=== PATIENT | male | born 1995 | race Caucasian/White ===

== ENCOUNTER 2024-02-20 16:24 | Observation (INO) | payer MEDICAID, SELFPAY ==
[2024-02-20 16:25] VITALS: BP 140/105; PULSE 100; RESP 20; TEMP 36.6; O2SAT 99; BMI 20.9
--- NOTE | 2024-02-20 16:56 | EX.ED.SAOD ---
HPI History of Present Illness Chief Complaint: Substance Abuse Detail of Chief Complaint: Fentanyl abuse. Informant: patient Onset/Context/Timing Onset: - (3 years) Timing: Continuous Current Severity: Moderate Maximum Severity: Moderate Narrative Narrative: 28-year-old male history of narcotic abuse. Currently his drug abuse is fentanyl. Primarily through snorting or smoking. Denies IV drug abuse. Requesting detox. Here with his parents. Of note has had a prior colectomy due to bowel perforation. He has a colostomy. Prior similar symptoms: Yes Recent Illness/Hospitalization: No PFSH PFSH Allergy/AdvReac Type Severity Reaction Status Date / Time No Known Allergies Allergy Verified 02/20/24 16:25 Surgical History H/O total colectomy Social History Smoking Status: Current every day smoker tobacco type: cigarettes ROS ROS ED ROS Narrative Withdrawal symptoms. Constitutional Constitutional ED: Denies chills or fever(s) Eyes Eyes: Denies blurry vision ENT ENT ED: Denies ear pain Cardiovascular Cardiovascular: Denies chest pain Respiratory/Chest Respiratory/Chest: Denies cough Gastrointestinal Gastrointestinal: Denies abdominal pain Genitourinary Genitourinary ED: Denies dysuria Musculoskeletal Musculoskeletal: Denies arthralgias Integumentary Denies abscess Neurologic Neurologic: Denies headache(s) Psychiatric Psychiatric: Reports anxiety Endocrine Endocrinology: Denies cold intolerance Hematologic/Lymphatic Hematologic/Lymphatic: Denies easy bleeding Allergic/Immunologic Allergic/Immunologic ED: Denies mouth swelling EXAM Physical Exam Narrative Exam Narrative: 28-year-old male vital signs are stable afebrile. Sitting upright in bed. Both parents are present in the room. H EENT exam unremarkable. Neck nontender. Lungs clear to auscultation bilaterally. Heart regular rhythm rate about 100 no murmur. Chest wall ribs nontender. Abdomen soft nondistended normal bowel sounds without peritoneal signs. Right lower quadrant colostomy bag. He is got a prior midline exploratory laparotomy surgery. With a chronic wound. Moving all 4 extremities. Nontender no edema. No track barrientos on his arms. He is awake and alert. Answer questions following commands. Back nontender. Const Vital Signs: 02/20/24 16:25 Temperature 98 F Temperature Source Temporal Pulse Rate 100 Respiratory Rate 20 H Blood Pressure 140/105 H Blood Pressure Mean 116 Pulse Ox 99 Oxygen Delivery Method Room Air Positive well nourished and well developed; Negative for obese, cachectic, contractures or unkempt General Appearance ED: well developed and NAD; Negative for unkempt, cachectic or contractures Nutritional Appearance: Negative for cachectic or obese HEENT Reports moist mucous membranes Negative for atraumatic, trauma or tenderness Eyes PERRL and EOMs intact bilaterally General Eye ED: Negative for pale conjunctiva Neck no lymphadenopathy, supple and no JVD Lymph Lymphatic: no lymphadenopathy noted Chest Wall inspection of chest normal and palpation of chest normal Resp normal respiratory effort and clear to auscultation bilaterally Cardio regular rate, regular rhythm, S1 normal heart sound, S2 normal heart sound and no murmurs Rate: Negative for bradycardia or tachycardic Rhythm: Negative for abnormal rhythm GI soft to palpation, non-tender, non-distended and no masses Inspection: Negative for abdominal distention Palpation: Negative for tender Back/Spine no CVA tenderness Extremity General Extremety ED: Negative for edema or tenderness General Extremity: Negative for edema Neuro oriented x3 and CN's II-XII intact bilaterally Sensorium / Orientation: alert, oriented to person, oriented to place and oriented to time; Negative for confused, lethargic or stuporous Speech: speech normal Motor Exam: strength 5/5 throughout Psych mental status grossly normal and thought process normal Appearance: Negative for unkempt Attitude: No belligerent and No agitated Mood & Affect: Negative for depressed or tearful Skin Lesions: no lesions Rashes: no rashes MDM MDM MDM Narrative Medical decision making narrative: 28-year-old male history of narcotic abuse requesting detox reportedly no prior history of detox. Last use was last night. Exam benign.Hospitalist on page for detox admission. History & Record Review Discussion w/independent historian: Patient Additional record(s) reviewed:: No prior records Discharge Plan Triage Chief Complaint: Substance Abuse ED Provider: Jose Enrique Mata Dx/Rx/DC Orders Primary Care Provider: Zabrina Baires,Out of Referrals: Zabrina Baires,Out of [Primary Care Provider] - Print Language: Mauritanian
--- NOTE | 2024-02-20 17:04 | HP.PCM.HOS_ITS ---
HPI - General General Date of Admission: 02/20/24 Date of Service: 02/20/24 Chief Complaint: Acute Opiate Withdrawal HPI Narrative The patient is a 28 y/o M w/ PMHx: Polysubstance abuse primarily with currently fentanyl 2 to 3 g daily smoked/snorted with last usage reportedly day prior to current presentation with history of severe associated constipation resulting in bowel perforation with exploratory laparotomy/partial colectomy with ostomy with reversal which failed with 3 creation of colostomy again, Tobacco use who presents to the [facility] ED on 02/20/24 w/ noted acute opiate withdrawal onset starting on day of presentation following last dose as noted the day prior with patient reported abdominal cramping, generalized body aches and pains, fatigue, restless leg noting interested in attaining clean status. Workup in the ED included T98, heart rate 100, BP 140/105, respiratory rate 20, 99% on room air, CBC with WC 10.7, hemoglobin 13.8, platelet 512 with left shift, CMP pending upon evaluation, UDS and ethyl alcohol level pending upon evaluation. [facility] Medical History Tobacco use Fentanyl use disorder, severe Polysubstance abuse Allergy/AdvReac Type Severity Reaction Status Date / Time No Known Allergies Allergy Verified 02/20/24 16:25 other (Patient denies any marked maternal or paternal family history including heart disease, diabetes, cancer, substance abuse.) Surgical History H/O exploratory laparotomy History of creation of ostomy H/O total colectomy Social History (Updated 02/20/24 @ 17:[address] Bertha Cotto MD) household members: family Smoking Status: Current every day smoker tobacco type: cigarettes Smoking packs per day: 2 Smoking cigarettes per day: 40.0 alcohol intake: never substance use type: other details: Fentanyl, approximately 2 to 3 g daily, snorted or smoked. ROS ROS Narrative Admission Review of Systems: CONSTITUTIONAL: No weight loss, fever, chills, + weakness or fatigue. HEENT: Eyes: No visual loss, blurred vision, double vision or yellow sclerae. Ears, Nose, Throat: No hearing loss, sneezing, congestion, runny nose or sore throat. SKIN: No rash or itching, lesions, wounds. CARDIOVASCULAR: No chest pain, chest pressure or chest discomfort, palpitations, edema, orthopnea, syncopal events. RESPIRATORY: No shortness of breath, cough or sputum, wheezing, hemoptysis. GASTROINTESTINAL: + Anorexia, nausea without emesis, abdominal discomfort/cramping, decreased output from ostomy. No melena, BRBPR. GENITOURINARY: No dysuria, frequency, urgency or retention. NEUROLOGICAL: No headache, dizziness, syncope, paralysis, ataxia, numbness or tingling in the extremities, focal weakness, change in bowel or bladder control, seizure. MUSCULOSKELETAL: + muscle, back pain, joint pain or stiffness. HEMATOLOGIC: No anemia, bleeding or bruising. LYMPHATICS: No enlarged nodes. No history of splenectomy. PSYCHIATRIC: No history of depression or anxiety. ENDOCRINOLOGIC: + reports of sweating, cold or heat intolerance. No polyuria or polydipsia. ALLERGIES: No history of asthma, hives, eczema or rhinitis. Vital Signs Vital Signs Vital Signs: 02/20/24 16:25 Temperature 98 F Temperature Source Temporal Pulse Rate 100 Respiratory Rate 20 H Blood Pressure 140/105 H Blood Pressure Mean 116 Pulse Ox 99 Oxygen Delivery Method Room Air Weight Weight: 138 lb 3.677 oz Body Mass Index (BMI) 20.9 Physical Exam Narrative Physical Examination: General: Awakens to stimuli, alert when awake but will fall back asleep, oriented to self, place, year, month recent events, cooperative, seated upright in ED bed, very fatigued. Skin: Normal color, normal turgor, no icterus, no cyanosis except for occasional stage ecchymoses, abrasion, several tattoos. HEENT: AT/NC, EOMI, PERRLA, dry MM, no carotid bruits or JVD noted. Lungs: Diminished, greater bases, mildly increased respiratory rate but no distress no rales, ronchi or wheezing. Heart: Mildly tachycardic with regular rhythm; no gallop, rub audible. Abdomen: Soft, mild generalized discomfort with palpation, ostomy in place, hyperactive bowel sounds, no obvious distention, no obvious HSM. Extremities: No cyanosis, clubbing, or edema. Neurological: Awakens to stimuli, alert when awake but will fall back asleep, oriented to self, place, year, month recent events, cooperative, seated upright in ED bed, very fatigued, cognitive function suspect decreased from baseline given acute presentation, pupils equally reactive to light and accommodation, cranial nerves gross normal, moving all 4 extremities, no focal deficits, strength moderately globally decreased secondary to acute presentation Psychiatric: Affect appears flat, fatigued, no acute evidence of depressive or anxiety feelings but despite denying history suspect likely part of substance abuse component. Results Lab / Micro Data 02/20/24 17:14 02/20/24 17:14 Assessment & Plan Assessment/Plan (1) Admitted to substance misuse detoxification center: PLAN: Plan The patient is a 28 y/o M w/ PMHx: Polysubstance abuse primarily with currently fentanyl 2 to 3 g daily smoked/snorted with last usage reportedly day prior to current presentation with history of severe associated constipation resulting in bowel perforation with exploratory laparotomy/partial colectomy with ostomy with reversal which failed with 3 creation of colostomy again, Tobacco use who presents to the [facility] ED on 02/20/24 w/ noted acute opiate withdrawal. #1. Acute Opiate Withdrawal: Will admit to [facility], routine labs with not marked appearing CBC with pending CMP/alcohol/UDS upon evaluation, will initiate and continue on protocol with tapering course of Subutex, as needed tylenol, ibuprofen, bowel regimen, gabapentin, Bentyl, Vistaril, methocarbamol, clonidine, PRN nightly trazodone for insomnia, IV fluids, IV antiemetics. Once patient clinically improved and completion of taper nearing will plan consultation with case management for transition to next level of rehabilitation care. #2. Polysubstance Abuse: Patient denies any IV drug abuse but given significant substance abuse history discussed and will obtain HIV, hepatitis, syphilis to be cautious. #3. History previous severe bowel perforation: Status post exploratory laparotomy with partial colectomy with ostomy with reversal trial unfortunately which failed and dehisced requiring additional surgery and recreation of ostomy which is still in place, continue routine ostomy care, monitor output. #4. Tobacco Abuse: Encouraged cessation, inpatient consultation per RT, NR if desired. #5. Elevated BP without evidence of diagnosis: Given presentation with acute opiate withdrawal likely related, continue to monitor and add regimen if appropriate, as needed IV hydralazine interim #6. DVT prophylaxis: Low risk for type of admission. Charges/Coding Visit Charges Inpatient E&M: 77881 Init Hosp L2
[2024-02-20 17:15] VITALS: BP 140/105; PULSE 100; RESP 20; TEMP 36.6; O2SAT 99
[2024-02-20 17:19] LABS: Absolute Lymphocyte Count 0.92 X10^3/uL (0.83-4.51); Absolute Neutrophil Count 8.6 X10^3/uL (2.0-7.7); Basophil# 0.05 X10^3/uL; Basophil% 0.5 % (0-1); Eosinophil# 0.04 X10^3/uL; Eosinophils% 0.4 % (0-5); Hematocrit 43.7 % (40-54); Hemoglobin 13.8 g/dL (13.0-16.5); Lymphocyte # 0.92 X10^3/ul (0.83-4.51); Lymphocyte % 8.6 % (19-41); Mean Corp Hgb Conc 31.6 g/dL (32-36); Mean Corpuscular Hgb 27.3 pg (27.0-32.0); Mean Corpuscular Volume 86.4 fL (80-94); Mean Platelet Vol. 8.7 fl (6.2-12.0); Monocyte# 1.13 X10^3/uL; Monocyte% 10.5 % (0-10); NRBC Flagged by Analyzer 0 % (0-5); Neutrophil # 8.55 X10^3/uL (2.7-7.7); Neutrophil % 79.5 % (47-70); Platelet Count 512 K/mm3 (150-450); RBC Distribution Width CV 17.2 % (11.6-14.6); RBC Distribution Width SD 53.8 fl (35.1-43.9); Red Blood Count 5.06 M/mm3 (4.6-6.2); White Blood Count 10.7 K/mm3 (4.4-11.0)
[2024-02-20 17:25] VITALS: BP 131/96
[2024-02-20 17:34] LABS: Alcohol, Blood (Medical)-Serum < 3.0 mg/dL
[2024-02-20 17:37] LABS: ALB/GLOB Ratio 0.7 RATIO (0.9-2.4); AST(SGOT) 16 U/L (15-37); Alanine Aminotransfer ALT/SGPT 26 U/L (16-61); Albumin, Serum 3.3 g/dL (3.2-5.0); Alkaline Phosphatase 114 U/L (45-117); Anion Gap 5 (5-15); BUN 9 mg/dL (7-18); BUN/Creat Ratio 11.3 RATIO (10-20); Calcium,Total 9.5 mg/dL (8.5-10.1); Chloride 105 mmol/L (98-107); Creatinine, Serum 0.79 mg/dL (0.70-1.30); EST Glomerular Filtration Rate 124 mL/min (>60); Est Glom Filt Rate - Afr Amer 150 mL/min (>60); Estimated Creatinine Clearance 124.56 ml/min; Globulin 4.7 g/dL (2.2-4.2); Glucose 119 mg/dL (74-106); Magnesium 2.3 mg/dL (1.6-2.6); Phosphorus 3.1 mg/dL (2.5-4.9); Potassium 3.3 mmol/L (3.5-5.1); Sodium Level 139 mmol/L (136-145)
[2024-02-20 17:52] LABS: Amphetamine Urine VISTA POSITIVE (<1000 ng/mL); Barbiturate Urine VISTA NEGATIVE (< 200 ng/mL); Benzodiazepine Urine VISTA NEGATIVE (< 200 ng/mL); Cocaine Urine VISTA NEGATIVE (< 300 ng/mL); Ecstacy Urine VISTA NEGATIVE (< 500 ng/mL); Methadone Urine VISTA NEGATIVE (< 300 ng/mL); PCP Urine VISTA NEGATIVE (< 25 ng/mL); THC Urine VISTA POSITIVE (< 50 ng/mL); Vista UDS pH Range 7
[2024-02-20 18:00] VITALS: BP 127/98; PULSE 89
[2024-02-20 19:01] VITALS: BP 118/98; PULSE 79; RESP 18; TEMP 36.9; O2SAT 100
[2024-02-20 19:34] VITALS: BMI 20.3
[2024-02-20] MEDS: traZODone 100 MG Tablet PO (20:00)
[2024-02-20] MEDS: Ibuprofen 600 MG Tablet PO (20:00)
[2024-02-20] MEDS: Methocarbamol 750 MG Tablet PO (20:00)
[2024-02-20] MEDS: Gabapentin 300 MG Capsule PO (20:00)
[2024-02-20] MEDS: Ondansetron 8 MG Tablet PO (20:00)
[2024-02-20 21:51] LABS: HIV - WCH Non-Reactive (Nonreactive); Hepatitis B Surface Antibody Non-Reactive; Hepatitis B Surface Antigen Non-Reactive (Nonreactive); Hepatitis C Antibody Non-Reactive (Nonreactive); Syphilis Antibodies Non-reactive
[2024-02-21 00:42] VITALS: BP 106/73; PULSE 97; RESP 16; TEMP 36.6; O2SAT 99
[2024-02-21 03:55] VITALS: BP 107/73; PULSE 78; RESP 15; TEMP 36.5; O2SAT 100
[2024-02-21] MEDS: Buprenorphine HCl 2 MG TAB.SUBL SL ×3 (03:57→22:09)
[2024-02-21 06:53] VITALS: BP 97/68; PULSE 89; RESP 16; TEMP 36.7; O2SAT 100
[2024-02-21 09:14] VITALS: BP 105/65; PULSE 106; RESP 15; TEMP 37.2; O2SAT 100
[2024-02-21] MEDS: Gabapentin 300 MG Capsule PO ×2 (09:25→22:10)
[2024-02-21] MEDS: Dicyclomine 10 MG Capsule 20 MG PO ×2 (09:25→22:10)
[2024-02-21] MEDS: Methocarbamol 750 MG Tablet PO ×2 (09:25→22:10)
[2024-02-21 13:00] VITALS: BP 119/80; PULSE 64; RESP 14; TEMP 37.1; O2SAT 98
[2024-02-21] MEDS: hydrOXYzine PAM 25 MG Capsule 50 MG PO (13:34)
[2024-02-21] MEDS: cloNIDine HCl 0.1 MG Tablet PO (13:34)
[2024-02-21] MEDS: Ibuprofen 600 MG Tablet PO (13:34)
--- NOTE | 2024-02-21 14:00 | PN_ITS ---
Subjective Subjective Patient seen and examined. He denied any withdrawal symptoms though he said he did not feel well. Review of systems is otherwise negative. He has remained hemodynamically stable. Objective Data Objective Data Vital Signs: Vital Signs Temp Pulse Resp BP Pulse Ox O2 Del Method 98.9 F 106 H 15 105/65 100 Room Air 02/21/24 09:14 02/21/24 09:14 02/21/24 09:14 02/21/24 09:14 02/21/24 09:14 02/21/24 09:25 Oxygen Delivery Method Room Air Weight: 133 lb 14.4 oz Body Mass Index (BMI) 20.3 Intake & Output: Intake and Output for Last 24 Hours 02/19/24 02/20/24 02/21/24 23:59 23:59 23:59 Intake Total 300 / 300 Balance 300 / 300 Lab / Micro Data 02/20/24 17:14 02/20/24 17:14 Labs: Laboratory Results - last 24 hr 02/20/24 16:30: Urine Opiates Screen NEGATIVE, Urine Methadone Screen NEGATIVE, Ur Barbiturates Screen NEGATIVE, Ur Phencyclidine Scrn NEGATIVE, Ur Amphetamines Screen POSITIVE H, MDMA (Ecstasy) Screen NEGATIVE, U Benzodiazepines Scrn NEGATIVE, Urine Cocaine Screen NEGATIVE, U Cannabinoids Screen POSITIVE H, Ur Drug Screen Comment 02/20/24 17:14: WBC 10.7, RBC 5.06, Hgb 13.8, Hct 43.7, MCV 86.4, MCH 27.3, MCHC 31.6 L, RDW Std Deviation 53.8 H, RDW Coeff of Mario 17.2 H, Plt Count 512 H, MPV 8.7, Immature Gran % (Auto) 0.500, Neut % (Auto) 79.5 H, Lymph % (Auto) 8.6 L, M justyna % (Auto) 10.5 H, Eos % (Auto) 0.4, Baso % (Auto) 0.5, Absolute Neuts (auto) 8.6 H, Absolute Lymphs (auto) 0.92, Nucleated RBC % 0, Sodium 139, Potassium 3.3 L, Chloride 105, Carbon Dioxide 29.0, Anion Gap 5, BUN 9, Creatinine 0.79, Estim Creat Clear Calc 124.56, Est GFR (MDRD) Af Amer 150, Est GFR (MDRD) Non-Af 124, BUN/Creatinine Ratio 11.3, Glucose 119 H, Calcium 9.5, Phosphorus 3.1, Magnesium 2.3, Total Bilirubin 0.30, AST 16, ALT 26, Alkaline Phosphatase 114, Total Protein 8.0, Albumin 3.3, Globulin 4.7 H, Albumin/Globulin Ratio 0.7 L, Ethyl Alcohol < 3.0 02/20/24 20:15: Syphilis Total Ab Non-reactive, Hep Bs Antigen Non-Reactive, Hep Bs Antibody Non-Reactive, Hepatitis C Antibody Non-Reactive, HIV 1&2 Antibody Non-Reactive Physical Exam Const alert, oriented x3 and no apparent distress General Appearance: cooperative HEENT normocephalic, head/scalp atraumatic and moist oral mucous membranes Eyes PERRL and EOMs intact bilaterally Neck no lymphadenopathy and supple Lymph Lymphatic: no lymphadenopathy noted and no lymphedema noted Resp normal respiratory effort, normal air movement and clear to auscultation bilaterally Cardio regular rate, regular rhythm, S1 normal heart sound, S2 normal heart sound and no murmurs GI normal to inspection, nondistended, normoactive bowel sounds GI Narrative: colostomy bag in place; Has a leaking abscess fistula on his abdomen, leaking very offensive smelling pus. Patient says this is chronic Extremity normal capillary refill, no clubbing, cyanosis or edema and no calf tenderness General Extremity: no tenderness to palpation of joints or extremities Neuro CN's II-XII intact bilaterally, no focal motor deficits and no sensory deficits noted Motor Exam: strength 5/5 throughout Psych thought process normal, cooperative and affect normal Assessment & Plan Assessment/Plan (1) Narcotic abuse: (2) History of colostomy: PLAN: Plan #Acute opioid withdrawal * on opioid withdrawal protocol with buprenorphine * adjunctive meds for symptomatic relief * monitor CINA score * #History of severe bowel perforation * This was due to severe constipation. He subsequently had exploratory laparotomy with partial colectomy and ostomy. He had a reversal trial but this failed and so he still has the ostomy. 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 It is draining very offensive present to his skin. Patient refused general surgery consult and says he follows up with general surgery in [place] and prefers to follow-up there once he is done with his acute detox. * Consult wound care. * #Nicotine dependence: Counseled to quit. Nicotine patch as needed. #Elevated blood pressure * Deny known history of hypertension: Blood pressure was in the 140s systolic but is now down at 105/65. * No need for blood pressure meds then. * Will monitor. * DVT prophylaxis: Low risk. Encourage ambulate. Charges/Coding Visit Charges Inpatient E&M: 48990 Subs Hosp L2
[2024-02-21 22:02] VITALS: BP 113/77; PULSE 94; RESP 16; TEMP 37.5; O2SAT 100
[2024-02-21] MEDS: Acetaminophen 325 MG Tablet 650 MG PO (22:09)
[2024-02-22 02:07] VITALS: BP 105/75; PULSE 79; RESP 16; TEMP 36.9; O2SAT 100
[2024-02-22 04:47] VITALS: BP 100/69; PULSE 80; RESP 16; TEMP 36.9; O2SAT 99
[2024-02-22] MEDS: Methocarbamol 750 MG Tablet PO ×3 (05:18→20:07)
[2024-02-22] MEDS: Dicyclomine 10 MG Capsule 20 MG PO ×2 (05:18→20:07)
[2024-02-22] MEDS: Buprenorphine HCl 2 MG TAB.SUBL SL ×3 (05:18→20:06)
[2024-02-22 07:54] VITALS: O2SAT 98
[2024-02-22 08:32] VITALS: BP 114/78; PULSE 88; RESP 14; TEMP 37.2; O2SAT 96
--- NOTE | 2024-02-22 11:57 | ADDICTION ---
Addendum entered by Nelly Love 02/23/24 11:40: Spoke with patient again, he reports that he will follow up with his PCP Bonnie Dias to go back on Suboxone post discharge. Original Note: This proposal lead writer met with PT to conduct ASAM, MSE, DUDIT assessments. PT A+Ox4 and participated actively. All assessments completed. PT reports that plans to f/u with AA meetings but was unclear about the place. He was not interested in any type of LUIS ALFREDO tx or any other tx recommendations.
[2024-02-22] MEDS: hydrOXYzine PAM 25 MG Capsule 50 MG PO (12:35)
[2024-02-22] MEDS: Acetaminophen 325 MG Tablet 650 MG PO ×2 (12:35→20:06)
[2024-02-22 15:02] VITALS: BP 100/68; PULSE 78; RESP 14; TEMP 36.7; O2SAT 97
--- NOTE | 2024-02-22 16:10 | PN.HOSP_ITS ---
Reason for Visit Reason for Visit: Diagnoses Opioid abuse, uncomplicated (02/20/24) Other specified health status (02/20/24) Objective Data Objective Data Vital Signs: Vital Signs Temp Pulse Resp BP Pulse Ox O2 Del Method 98.1 F 78 14 100/68 97 Room Air 02/22/24 15:02 02/22/24 15:02 02/22/24 15:02 02/22/24 15:02 02/22/24 15:02 02/22/24 15:02 Oxygen Delivery Method Room Air Weight: 133 lb 14.4 oz Body Mass Index (BMI) 20.3 Intake & Output: Intake and Output for Last 24 Hours 02/20/24 02/21/24 02/22/24 23:59 23:59 23:59 Intake Total 750 / 750 400 / 400 Balance 750 / 750 400 / 400 Lab / Micro Data 02/20/24 17:14 02/20/24 17:14 Physical Exam Narrative Seen and examined Patient admitted with acute opioid withdrawal symptoms. Still has symptoms of anxiety, restlessness, mild aches and pains and mild insomnia Physical exam General: Alert, Oriented x3, Cooperative. HEENT: Atraumatic, PERRLA, EOMI, Normocephalic Oral: No Gingival or Mucosal Lesions/ Ulcerations Neck: Supple, No JVD, Negative Carotid Bruits Chest wall/Lungs: Air entry diminished in bilateral lung bases. No crepitation/rhonchi Cardiovascular: Regular rate and rhythm, Normal S1, Normal S2, No M/G/R Abdomen: Bowel Sounds Present, Soft, Non Tender, Non-Distended : No dysuria. No renal angle tenderness. No suprapubic tenderness. Extremities: No edema, Capillary Refill Less than 3 Seconds Skin: Chronic exudative pus from lower end of incision, most likely sinus or fistula. Foul-smelling purulent discharge with the stain on the dressing. Colostomy bag. Musculoskeletal: No Tenderness to Palpation of Joints or Extremities Neurological: Cranial nerves II-XII grossly intact, DTR 2+/4. No acute focal neurological deficit. Psych/Mental Status: Flat affect Assessment & Plan Assessment/Plan (1) Narcotic abuse: (2) History of colostomy: PLAN: Plan #Acute opioid withdrawal * on opioid withdrawal protocol with buprenorphine * adjunctive meds for symptomatic relief * monitor CINA score 02/21:CINA score is 3. Mild crampy abdomen intermittently in waves, sweating muscle aches and pain and anxiety. #History of chronic severe bowel perforation * This was due to severe constipation. He subsequently had exploratory laparotomy with partial colectomy and ostomy. He had a reversal trial but this failed and so he still has the ostomy. 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 It is draining very offensive present to his skin. Patient refused general surgery consult and says he follows up with general surgery in [place] and prefers to follow-up there once he is done with his acute detox. * Consult wound care. 02/21: Chronic purulent discharge with staining on the dressing. Patient refused for seeing the general surgery today also. Rest already mentioned above. #Nicotine dependence: Counseled to quit. Nicotine patch as needed. #Elevated blood pressure * Deny known history of hypertension: Blood pressure was in the 140s systolic but is now down at 105/65. * No need for blood pressure meds then. * Continue monitor. DVT prophylaxis: Low risk. Encourage ambulate. Charges/Coding Visit Charges Inpatient E&M: 73392 Subs Hosp L2
[2024-02-22 19:55] VITALS: BP 112/69; PULSE 100; RESP 16; TEMP 39.2; O2SAT 96
[2024-02-22] MEDS: traZODone 100 MG Tablet PO (20:06)
[2024-02-22] MEDS: Ondansetron 8 MG Tablet PO (20:07)
[2024-02-23 00:45] VITALS: BP 98/58; PULSE 65; RESP 16; TEMP 37.3; O2SAT 97
[2024-02-23 08:03] VITALS: O2SAT 96
[2024-02-23] MEDS: Buprenorphine HCl 2 MG TAB.SUBL SL (09:38)
--- NOTE | 2024-02-23 09:48 | NURSING ---
Patient refused assessment and vitals at this time.
--- NOTE | 2024-02-23 10:10 | WOUNDNOTE ---
Pt refused to let this nurse assess wounds at this time. will try to assess the wounds later if patient will allow.
--- NOTE | 2024-02-23 10:50 | PCM.DC ---
Discharge Instructions DC O2, CPAP, BIPAP needs Home O2 Discharge instructions: No Follow Up Care Test Results: Test results from this visit will be discussed in further detail at your follow-up appointment, if applicable. Discharge Plan Admission Admit Date/Time: 02/20/24 17:05 Attending Provider: Paul Yang Primary Care Provider: Care Physician,No Primary Consulting Providers: Bertha Cotto; Maria Del Rosario Tijerina Instructions Additional Instructions / Restrictions: Follow outpatietnt 180 rehab Discharge Orders/Prescriptions Prescriptions: New cephalexin 500 mg capsule 500 mg PO TID Qty: 15 0RF Continued buprenorphine-naloxone 8-2 mg film 1 ea sublingual BID gabapentin 300 mg capsule 300 mg PO TID Referrals / Follow Up: Care Physician,No Primary [Primary Care Provider] - [facility] Doctor,Out of [Non-Staff] - Disposition Disposition (needs filled in before D/C Order can be placed): Home, Self Care
--- NOTE | 2024-02-23 12:52 | DS.PCM_ITS ---
Providers Date of Admission: 02/20/24 Date of Discharge: 02/23/24 Primary Care Physician: No Primary Care Phys Consultations 02/21/24 15:31 Consult: Onc/Wound/dough mixer operator Routine Comment: Reason for Consult:: foul smeeling drng to abd inc and abscess to buttocks Reason For Visit: ACUTE OPIATE WITHDRAWAL Diagnosis Discharge Diagnosis (1) Narcotic abuse: Status: Acute Code(s): F11.10 - Opioid abuse, uncomplicated (2) History of colostomy: Status: Acute Plan This 24-year-old gentleman being admitted for acute opioid withdrawal syndrome. #Acute opioid withdrawal * on opioid withdrawal protocol with buprenorphine * adjunctive meds for symptomatic relief * monitor CINA score 02/21:CINA score is 3. Mild crampy abdomen intermittently in waves, sweating muscle aches and pain and anxiety. 02/22: Patient is feeling good. Was seen by addiction medicineRuy. Follow- up with a AA meeting. #History of chronic severe bowel perforation * This was due to severe constipation. He subsequently had exploratory laparotomy with partial colectomy and ostomy. He had a reversal trial but this failed and so he still has the ostomy. 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 It is draining very offensive present to his skin. Patient refused general surgery consult and says he follows up with general surgery in [place] and prefers to follow-up there once he is done with his acute detox. * Consult wound care. 02/21: Chronic purulent discharge with staining on the dressing. Patient refused for seeing the general surgery today also. Rest already mentioned above. 02/22: Patient discharged on 5 days of Keflex. He said he has appointment with general surgery office. #Nicotine dependence: Counseled to quit. Nicotine patch as needed. #Elevated blood pressure * Deny known history of hypertension: Blood pressure was in the 140s systolic but is now down at 105/65. * No need for blood pressure meds then. * Continue monitor. DVT prophylaxis: Low risk. Encourage ambulate. Discharge medication reconciliation done. Discharge follow-up instructions completed. Discharge process discussed with the patient and all questions were answered to patient's satisfaction. Follow with PCP in 1 to 2 weeks Total time spent, exact 35 minutes on discharge meds reconciliation, examination, coordination of care with nurses and ancillary staff, review of imaging and blood test and discussion with the patient on follow-up instructions. Medications at Discharge Home Medications buprenorphine 8 mg-naloxone 2 mg sublingual film 1 ea sublingual BID SUBSTANCE ABUSE 02/20/24 gabapentin 300 mg capsule 300 mg PO TID NERVES 02/20/24 cephalexin 500 mg capsule 500 mg PO TID #15 caps 02/23/24 Physical Exam Narrative Seen and examined Patient admitted with acute opioid withdrawal symptoms. Withdrawal symptoms are much improved. Patient wants to go home Physical exam General: Alert, Oriented x3, Cooperative. HEENT: Atraumatic, PERRLA, EOMI, Normocephalic Oral: No Gingival or Mucosal Lesions/ Ulcerations Neck: Supple, No JVD, Negative Carotid Bruits Chest wall/Lungs: Air entry diminished in bilateral lung bases. No crepitation/rhonchi Cardiovascular: Regular rate and rhythm, Normal S1, Normal S2, No M/G/R Abdomen: Bowel Sounds Present, Soft, Non Tender, Non-Distended : No dysuria. No renal angle tenderness. No suprapubic tenderness. Extremities: No edema, Capillary Refill Less than 3 Seconds Skin: Chronic exudative pus from lower end of incision, most likely sinus or fistula. Foul-smelling purulent discharge with the stain on the dressing. Colostomy bag. Musculoskeletal: No Tenderness to Palpation of Joints or Extremities Neurological: Cranial nerves II-XII grossly intact, DTR 2+/4. No acute focal neurological deficit. Psych/Mental Status: Flat affect Weight / BMI Weight Weight: 133 lb 14.4 oz Body Mass Index (BMI) 20.3 ABG / Lab / Microbiology Data 02/20/24 17:14 02/20/24 17:14 D/C Instructions DC O2, CPAP, BIPAP Needs Home O2 Discharge instructions: No Meaningful Use Info Meaningful Use Meaningful Use Diagnoses (Choose all that apply): None applicable Ischemic Stroke Statin Dosing Therapy Reference: STATIN DOSE THERAPY REFERENCE: * Patients > 75 years receive moderate or high dose statin therapy. * Patients 75 years or YOUNGER should receive HIGH intensity statin dose unless contraindicated. You will be required to document reason for non-treatment if statin daily dose does not meet guidelines. HIGH DOSE STATIN THERAPY DAILY Atorvastatin > than or = to 40 mg Rosuvastatin > than or = to 20 mg Amlodipine + Atorvastatin > than or = to 2.5/40 mg Ezetimibe + Simvastatin 10/80 mg Simvastatin 80mg Discharge Plan Admission Admit Date/Time: 02/20/24 17:05 Attending Provider: Paul Yang Primary Care Provider: Care Physician,No Primary Consulting Providers: Bertha Cotto; Maria Del Rosario Tijerina Instructions Additional Instructions / Restrictions: Follow outpatietnt 180 rehab Discharge Orders/Prescriptions Prescriptions: New cephalexin 500 mg capsule 500 mg PO TID Qty: 15 0RF Continued buprenorphine-naloxone 8-2 mg film 1 ea sublingual BID gabapentin 300 mg capsule 300 mg PO TID Referrals / Follow Up: Care Physician,No Primary [Primary Care Provider] - [facility] Doctor,Out of [Non-Staff] - Disposition Disposition (needs filled in before D/C Order can be placed): Home, Self Care Charges/Coding Visit Charges Inpatient E&M: 44343 Disch Hosp >30min
== END 2024-02-23 13:25 | disposition home or self-care (01) | DRG 773 ==
LOC: ED 17:18 → MS3 17:42
PROVIDERS: Admitting Provider Family Medicine; Emergency Provider Emergency Medicine; Visit Provider Internal Medicine
DX: F11.13 Opioid abuse with withdrawal (principal); K94.02 Colostomy infection; F17.210 Nicotine dependence, cigarettes, uncomplicated; R03.0 Elevated blood-pressure reading, without diagnosis of hypertension; L02.211 Cutaneous abscess of abdominal wall
CPT/HCPCS: 80053; 80307; 82077; 83735; 84100; 85025; 86703; 86706; 86780; 86803; 87340; 99283; H0012